=== PATIENT | male | born 2000 | race American Indian/Alaskan Native ===

== ENCOUNTER 2020-11-15 14:36 | Outpatient (AMBR) | payer OTHER, MEDICAID, SELFPAY ==
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
--- NOTE | 2020-11-15 15:10 | PT.ODAYNRPT ---
PT Outpatient Daily Note Date of Service: 11/15/20 OP Daily Note Visit Reasons: left hemiplegia Outpatient Physical Therapy Treatment Date: 11/15/20 Subjective: Pt's sister mention that he still sit most of the time. Objective: Please see flow chart for list of ther ex performed Assessment: tolerate exercises with minimal pain; difficulty with WB on the left LE with standing improved after calf and Hs stretch Plan: Continue with PT Length of Time (minutes) of Treatment: 30 Minutes Office Procedures PT Procedures PT Date of Service: 11/09/20 OP PT Eval Mod Complex 30 minutes: Yes PT Procedures PT Date of Service: 11/15/20 Therapeutic Exercise 30 minutes: Yes
== END 2020-11-21 23:59 | disposition home or self-care (01) ==
PROVIDERS: PCP Nurse Practitioner Family; Referring Provider Nurse Practitioner Family; Visit Provider Nurse Practitioner Family
DX: I69.854 Hemiplegia and hemiparesis following other cerebrovascular disease affecting left non-dominant side (principal); I10 Essential (primary) hypertension
CPT/HCPCS: 97110; 97162

== ENCOUNTER 2020-12-19 13:57 | Outpatient (AMBR) | payer OTHER, MEDICAID, SELFPAY ==
--- NOTE | 2020-11-23 15:58 | PT.ODAYNRPT ---
PT Outpatient Daily Note Date of Service: 11/23/20 OP Daily Note Visit Reasons: left hemiplegia Outpatient Physical Therapy Treatment Date: 11/23/20 Subjective: Pt's doing okay. According to his sister he was sore from last session Objective: Please see flow chart for list of ther ex performed Assessment: cues to keep L LE down but unable. practice sit to stand but still needs to work on control with sitting. Pt has the tendency to flop backward Plan: Continue with PT Length of Time (minutes) of Treatment: 30 Minutes Office Procedures PT Procedures PT Date of Service: 11/23/20 Therapeutic Exercise 30 minutes: Yes
--- NOTE | 2020-12-07 12:34 | PT.ODAYNRPT ---
PT Outpatient Daily Note Date of Service: 12/07/20 OP Daily Note Visit Reasons: left hemiplegia Outpatient Physical Therapy Treatment Date: 12/07/20 Subjective: Pt says he's doing well and wants to stand and do exercises. Sister says he can't put foot flat on the floor in standing. Objective: See F/S for therex and therapeutic activity: sit to stand transfers and weight shifts to L and L LE advances x10' Assessment: Pt is able to stand with R hand pulling up on parallel bars and R LE support. He can advance the L LE but not bring it back. The L ankle is inverted and plantarflexed and knee is flexed in standing he would benefit from L AFO. With L knee blocked to not flex he can weight shift onto that side while holding on with R hand. The L elbow get sore with extension since there is a flexion contracture. Plan: Continue per POC Length of Time (minutes) of Treatment: 30 Minutes Office Procedures PT Procedures PT Date of Service: 11/23/20 Therapeutic Exercise 30 minutes: Yes PT Procedures PT Date of Service: 12/07/20 Therapeutic Activity 15 minutes: Yes Therapeutic Exercise 15 minutes: Yes
--- NOTE | 2020-12-14 12:41 | PT.ODAYNRPT ---
PT Outpatient Daily Note Date of Service: 12/14/20 OP Daily Note Visit Reasons: left hemiplegia Outpatient Physical Therapy Treatment Date: 12/14/20 Subjective: feeling good today. not sore from last time. Sister says Trying keep him moving at home and moving him. Objective: Please see flowsheet for therex performed Assessment: Pt is able to stand with R hand pulling up on parallel bars and R LE support. Pt was able to complete more sit to stands this time with better form each time. The L ankle is inverted and plantarflexed and knee is flexed in standing he would benefit from L AFO. With L knee blocked to not flex he can weight shift onto that side while holding on with R hand. Added tricep extension exercise to left side to strengthen for transfers and help decrease contracture. Educated sister on HEP for clams and tricep extension to help strengthen at home. Plan: Continue with POC Length of Time (minutes) of Treatment: 30 Minutes Office Procedures PT Procedures PT Date of Service: 11/23/20 Therapeutic Exercise 30 minutes: Yes PT Procedures PT Date of Service: 12/07/20 Therapeutic Activity 15 minutes: Yes Therapeutic Exercise 15 minutes: Yes PT Procedures PT Date of Service: 12/14/20 Therapeutic Exercise 30 minutes: Yes
--- NOTE | 2020-12-17 14:43 | PT.ODAYNRPT ---
PT Outpatient Daily Note Date of Service: 12/17/20 OP Daily Note Visit Reasons: left hemiplegia Outpatient Physical Therapy Treatment Date: 12/17/20 Subjective: Doing good today. Not sore from last time. Objective: Please see flowsheet for therex performed Assessment: Pt tolerated all therex well today with good activity tolerance and improving teach back of exercises. Added Digi flx and Lat pulldowns to strengthen left side and to help with transfers out of wheelchair. Practiced taking a step today with his good side first to bare weight on left side to normalize tone and to get use to ambulation. Plan: continue with POC Length of Time (minutes) of Treatment: 30 Minutes Office Procedures PT Procedures PT Date of Service: 11/23/20 Therapeutic Exercise 30 minutes: Yes PT Procedures PT Date of Service: 12/17/20 Therapeutic Exercise 30 minutes: Yes PT Procedures PT Date of Service: 12/07/20 Therapeutic Activity 15 minutes: Yes Therapeutic Exercise 15 minutes: Yes PT Procedures PT Date of Service: 12/14/20 Therapeutic Exercise 30 minutes: Yes
--- NOTE | 2020-12-19 15:03 | PT.ODAYNRPT ---
PT Outpatient Daily Note Date of Service: 12/19/20 OP Daily Note Visit Reasons: left hemiplegia Outpatient Physical Therapy Treatment Date: 12/19/20 Subjective: Doing good today. No soreness from last time. Sister says he has been doing his exercises at home Objective: Please see flowsheet for therex performed Assessment: Pt tolerated all therex performed with good activity tolerance and good teach back. Added Leg press with theraband to simulate walking motion and ankle 4 way to help strengthen around it. Pt ambulated to the end of the parallel bars while using the [employer] @ mod assist. Plan: Continue with POC Length of Time (minutes) of Treatment: 30 Minutes Office Procedures PT Procedures PT Date of Service: 11/23/20 Therapeutic Exercise 30 minutes: Yes PT Procedures PT Date of Service: 12/17/20 Therapeutic Exercise 30 minutes: Yes PT Procedures PT Date of Service: 12/07/20 Therapeutic Activity 15 minutes: Yes Therapeutic Exercise 15 minutes: Yes PT Procedures PT Date of Service: 12/14/20 Therapeutic Exercise 30 minutes: Yes PT Procedures PT Date of Service: 12/19/20 Therapeutic Exercise 30 minutes: Yes
== END 2020-12-22 23:59 | disposition home or self-care (01) ==
PROVIDERS: PCP Nurse Practitioner Family; Referring Provider Nurse Practitioner Family; Visit Provider Nurse Practitioner Family
DX: G81.94 Hemiplegia, unspecified affecting left nondominant side (principal); Z87.820 Personal history of traumatic brain injury; R26.2 Difficulty in walking, not elsewhere classified; Z99.3 Dependence on wheelchair
CPT/HCPCS: 97110; 97530

== ENCOUNTER 2020-12-31 12:56 | Outpatient (AMBR) | payer OTHER, MEDICAID, SELFPAY ==
--- NOTE | 2020-12-24 14:42 | PT.ODAYNRPT ---
PT Outpatient Daily Note Date of Service: 12/24/20 OP Daily Note Visit Reasons: left hemiplegia Outpatient Physical Therapy Treatment Date: 12/24/20 Subjective: Not real sore from last time. Objective: Manual; Calf stretch, Hamstring [id number] Please see flow sheet for therex performed Assessment: Today pt required more tactile feedback to weight shift more to affected side. During sit to stand and ambulation patient needs guarding of left knee to keep it straight and to plant foot properly. Affected leg responded by straightening out and less contracted after manual calf and hamstring stretch today. Added tricep work to help strengthen for transfers and decrease contracture on left elbow. Added clips and digiflex exercises to help strengthen left hand while elbow extended. Plan: Continue with POC Length of Time (minutes) of Treatment: 30 Minutes Office Procedures PT Procedures PT Date of Service: 12/24/20 Therapeutic Exercise 30 minutes: Yes
--- NOTE | 2020-12-26 14:59 | PT.ODAYNRPT ---
PT Outpatient Daily Note Date of Service: 12/26/20 OP Daily Note Visit Reasons: left hemiplegia Outpatient Physical Therapy Treatment Date: 12/26/20 Subjective: Doing okay today. He is using his other hand more at home - Sister Objective: Manual calf stretch for 3x 1 minute Please see flowsheet for therex performed Assessment: Pt tolerated therex with lots of cuing on every exercise. Patient has issues understanding commands so used manual movements to show patient, which helps quite a bit. Pt doesnt bare weight on left side without guarding on right knee bend and ankle inversion. Suggested to pt's sister that an AFO is need to stabilize ankle so that ambulation can happen safely. Plan: Continue with POC Length of Time (minutes) of Treatment: 30 Minutes Office Procedures PT Procedures PT Date of Service: 12/26/20 Therapeutic Exercise 30 minutes: Yes PT Procedures PT Date of Service: 12/24/20 Therapeutic Exercise 30 minutes: Yes
--- NOTE | 2020-12-31 13:55 | PTNOTE_ITS ---
PT OP Progress/Discharge Note Date of Service: 12/31/20 Progress Note/DC Note Progress Note/Discharge Note: DC Note Patient Information Visit Reasons: left hemiplegia Medical Diagnosis: G81.94; Z87.820 Treatment Dx #1: Left Side Weakness Service Continue Service or Discharge: Discharge Discharge Date: 12/31/20 Status Subjective: Pt's sister stated that there's a small amount of improvement with his left hand but minimal change with his transfer and walking. Pt still has limitation with bed mobility, self care, and performing recreational activities. According to his sister ambulation is attempted at home but is unsafe. Objective: Left Shoulder PROM FLexion: 90 deg Abduction: 90 deg ER and IR: unable due to pain Left Shoulder AROM Flexion: 70 deg Abduction: 45 deg ER and IR: unable Left Elbow AROM: -20 deg to 140 deg (contracted) Left Elbow MMTs: grossly 4-/5 Left Wrist AROM: all motions are 50% towards end range Romber sec Assessment: Pt continues to exhibit left side weakness leading to difficulty with all ADLs, chores, ambulation, and recreational activities. Pt exhibit minimal progress these past few weeks due to severity of TBI. Pt is unable to follow command which hinder his performance in therapy session. At this time Pt will no longer benefit from physical therapy due to plateau towards goals. Recommend Pt to return back to PCP for a ankle AFO to help increase ankle stability during standing or ambulation. Due to Pt's condition he will require a custom AFO from [facility]. Once Pt received his AFO pleas refer back for gait training, thank you for your referrals. Plan: D/C home with HEP and follow up with PCP Recommend ankle AFO Office Procedures PT Procedures PT Date of Service: 12/26/20 Therapeutic Exercise 30 minutes: Yes PT Procedures PT Date of Service: 12/31/20 Therapeutic Exercise 30 minutes: Yes PT Procedures PT Date of Service: 12/24/20 Therapeutic Exercise 30 minutes: Yes
== END 2021-01-22 23:59 | disposition home or self-care (01) ==
PROVIDERS: PCP Nurse Practitioner Family; Referring Provider Nurse Practitioner Family; Visit Provider Nurse Practitioner Family
DX: R53.1 Weakness (principal); S06.890S Other specified intracranial injury without loss of consciousness, sequela; V89.2XXS Person injured in unspecified motor-vehicle accident, traffic, sequela
CPT/HCPCS: 97110